=== PATIENT | male | born 1960 | race Asian ===

== ENCOUNTER 2025-05-10 07:26 | Emergency (ER) | payer BC ==
[~2025-05-10] VITALS: Ht 162.6 cm; Wt 69.5 kg
[~2025-05-10 07:26] MED LIST: OMEG1CAP46 PO
--- NOTE | 2025-05-10 07:46 | Physician Documentation ---
History of Present Illness Chief Complaint: See Chief Complaint Stated Complaint: RABIES VACCINE Time Seen by MD: 07:31 Source: patient Mode of Arrival: POV Exam Limitations: no limitations HPI Patient who was seen several days ago in the ER after touching a bat and feeling of poke. Concern for bite. Rabies vaccine started along with immunoglobulin. He is back today for his 2nd vaccine. Denies any problems with the vaccine. Medication Reconciliation Allergies: Coded Allergies: No Known Allergies (Unverified , 05/07/25) Scheduled [place]-3 Fatty Acids/Fish Oil ([place] 3 1,000 mg Softgel), 1 CAP PO DAILY, (Reported) Past Medical History Past Medical History: Lymphoma Past Surgical History: noncontributory Alcohol Use: None Drug Use: none Lives In: Home Review of Systems All Other Systems at this time: Reviewed and Negative Physical Exam Vital Signs: Temperature: 98.6, Source: Oral, Heart Rate: 65, Respiratory Rate: 18, BP: 127/64, Pulse Oximetry: 100, Weight: 69.550 General Appearance: alert EENT: PERRL/EOMI Neck: normal inspection Respiratory: no respiratory distress Chest: no accessory muscle use Neurologic: oriented x4 Psychiatric: normal mood/affect Skin: normal color, warm/dry Progress Results/Orders Results/Orders Completed Orders - MORELIA LOPEZ MD Rabies Vaccine ([facility])/Pf (Rabavert Rabie (05/10/25 07:40) Vital Signs 05/10/25 07:30 Temp 98.6 Pulse 65 Resp 18 B/P (MAP) 127/64 Pulse Ox 100 Departure Disposition: 01 HOME / SELF CARE / HOMELESS Impression: Primary Impression: Rabies, need for prophylactic vaccination against Condition: Stable Referrals: NO PRIMARY CARE PROVIDER (PCP) Comments Return on day 7 which would be May 14 for your next vaccine. Return to the ER prior to that time if any concerns. Education Educated: Patient, Family Educated regarding: diagnosis, treatment, need for follow up Signature Scribe Signature: No scribe used Attestation: No scribe used MORELIA LOPEZ MD May 10, 2025 07:46
[2025-05-10 08:23] VITALS: BP 120/77; PULSE 61; RESP 18; TEMP 98.6; O2SAT 98
== END 2025-05-10 08:22 | disposition home or self-care (01) ==
LOC: ER 07:27
DX: Z23 Encounter for immunization (principal); Z91.013 Allergy to seafood
CPT/HCPCS: 90471; 90675; 99281

== ENCOUNTER 2025-05-14 07:16 | Emergency (ER) | payer BC, MEDICARE ==
[~2025-05-14] VITALS: Ht 162.6 cm; Wt 68.1 kg
[2025-05-14 07:19] VITALS: TEMP 96.4
--- NOTE | 2025-05-14 07:29 | Physician Documentation ---
History of Present Illness General Chief Complaint: See Chief Complaint Stated Complaint: RABIES VACCINE Time Seen by MD: 07:29 OK to notify your PCP?: No Source: patient, family, RN notes reviewed, old records Mode of Arrival: POV Exam Limitations: no limitations History of Present Illness Initial Comments 65 year old male presents for the 3rd vaccination in the rabies series after accidentally touching at bat on 05/07/2025 and pricking his left ring finger. He presented to the ED on the initial day and was started on the rabies vaccination series. He returned on 05/10/2025 for the 2nd dose. He denies any pain of the finger, spreading redness, fever, body aches, or any other concerns. Medication Reconciliation Allergies: Coded Allergies: No Known Allergies (Unverified , 05/14/25) Scheduled [place]-3 Fatty Acids/Fish Oil ([place] 3 1,000 mg Softgel), 1 CAP PO DAILY, (Reported) Past Medical History Past Medical History: Lymphoma Past Surgical History: noncontributory Alcohol Use: None Drug Use: none Lives In: Home Review of Systems All Other Systems at this time: Reviewed and Negative ROS As stated above in the HPI, otherwise all systems are reviewed and negative. Physical Exam Physical Exam Vital Signs: RN Vital Signs have been reviewed: Yes, Temperature: 96.4, Heart Rate: 59, Respiratory Rate: 16, BP: 116/54, Pulse Oximetry: 99, Weight: 68.100 Pulse Oximetry Reflects: adequate oxygenation Physical Exam VITALS: Reviewed and as above. GENERAL: Alert, no apparent distress. HEENT: Normocephalic, atraumatic, PERRL, EOMI, dry mucosa MUSCULOSKELETAL: No deformities, no edema SKIN: Normal appearing skin of the left hand, FROM of all fingers. Warm and dry, no rash NEURO: Oriented x4, No motor or sensory deficit PSYCH: Normal mood and affect, no agitation Progress Progress Note 0800: Pharmacy reports we do not have a rabies vaccination in stock, as it is a consignment medication, but will have one tomorrow. Patient wishes to return tomorrow for the vaccination. Results/Orders Results/Orders Vital Signs 05/14/25 07:19 Temp 96.4 Pulse 59 Resp 16 B/P (MAP) 116/54 Pulse Ox 99 Medical Decision Making Additional info obtained from: old records (Admitted in 2019 for leg infection) Findings 65 year old male presents for the 3rd vaccination in the rabies series after break in the skin to his left 4th finger when accidentally picking up a bat on 05/07/25. He has received the first two vaccinations in the series and has no complaints at this time. He denies any fever, pain, or body aches. Upon examination there is no evidence of erythema, skin break, or issues with the range of motion of the left hand/4th finger. Unfortunately I was notified by pharmacy that we do not have a rabies vaccination in stock, and can not obtain one from an outside facility. Pharmacy reports we will have a vaccination in stock tomorrow morning. Patient wishes to return tomorrow for the 3rd vaccination, and again in one week for the 4th and final vaccination. Vital signs were reviewed and interpreted by myself as within normal limits; pulse oxygenation was reviewed and interpreted by myself as normal. Prior records and hospitalizations were reviewed: Admitted in 2019 for leg infection and seen twice in the last week for rabies vaccinations. Departure Time of Disposition: 07:43 Disposition: 01 HOME / SELF CARE / HOMELESS Impression: Primary Impression: Encounter for repeat administration of rabies vaccination Condition: Stable Discharge Instructions: Rabies Additional Instructions: Return to the ER tomorrow for the 3rd vaccination, and in one week for the final vaccination. Return sooner for other concerns. Education Educated: Patient, Family Educated regarding: diagnosis, treatment, need for follow up Signature Scribe Signature: Scribed for Shahana Estes MD by Kishan Bang . 05/14/25 07:45 SHAHANA ESTES MD May 14, 2025 07:29 KISHAN FULLER May 14, 2025 07:45
[2025-05-14 08:26] VITALS: BP 120/62; PULSE 57; RESP 16; O2SAT 98
== END 2025-05-14 08:28 | disposition home or self-care (01) ==
LOC: ER 07:17
DX: S61.255D Open bite of left ring finger without damage to nail, subsequent encounter (principal); Z23 Encounter for immunization; Z79.899 Other long term (current) drug therapy; W54.0XXD Bitten by dog, subsequent encounter
CPT/HCPCS: 99281

== ENCOUNTER 2025-05-15 09:11 | Emergency (ER) | payer BC, MEDICARE ==
[~2025-05-15] VITALS: Ht 162.6 cm; Wt 68.7 kg
[2025-05-15 09:17] VITALS: BP 117/48; PULSE 87; RESP 18; O2SAT 98
--- NOTE | 2025-05-15 09:23 | Physician Documentation ---
History of Present Illness General Chief Complaint: Medication Request Stated Complaint: RABIES VACCINE Time Seen by MD: 09:20 OK to notify your PCP?: No Source: patient, RN notes reviewed Mode of Arrival: POV Exam Limitations: no limitations History of Present Illness Initial Comments 65 year old male presents for the 3rd vaccination in the rabies series after accidentally touching at bat on 05/07/2025 and pricking his left ring finger. He presented to the ED on the initial day and was started on the rabies vaccination series. He returned on 05/10/2025 for the 2nd dose. Patient also visited the ED yesterday for the 3rd dose, however we did not have a dose of the vaccine, so he was recommended to return today. He denies any pain of the finger, spreading redness, fever, body aches, or any other concerns. Medication Reconciliation Allergies: Coded Allergies: No Known Allergies (Unverified , 05/14/25) Scheduled [place]-3 Fatty Acids/Fish Oil ([place] 3 1,000 mg Softgel), 1 CAP PO DAILY, (Reported) Past Medical History Past Medical History: Lymphoma Past Surgical History: noncontributory Alcohol Use: None Drug Use: none Lives In: Home Review of Systems All Other Systems at this time: Reviewed and Negative ROS As stated above in the HPI, otherwise all systems are reviewed and negative. Physical Exam Physical Exam Vital Signs: RN Vital Signs have been reviewed: Yes, Temperature: 97.6, Source: Temporal, Heart Rate: 87, Respiratory Rate: 18, BP: 117/48, Pulse Oximetry: 98, Weight: 68.700 Pulse Oximetry Reflects: adequate oxygenation Physical Exam VITALS: Reviewed and as above. GENERAL: Alert, no apparent distress. HEENT: Normocephalic, atraumatic, PERRL, EOMI, dry mucosa MUSCULOSKELETAL: No deformities, no edema SKIN: Left hand without signs of erythema or any skin break, full range of motion of all fingers. Warm and dry, no rash NEURO: Oriented x4, No motor or sensory deficit PSYCH: Normal mood and affect, no agitation Progress Results/Orders Results/Orders Vital Signs 05/15/25 09:17 Temp 97.6 Pulse 87 Resp 18 B/P (MAP) 117/48 Pulse Ox 98 Departure Time of Disposition: Disposition: 01 HOME / SELF CARE / HOMELESS Impression: Primary Impression: Encounter for repeat administration of rabies vaccination Condition: Stable Discharge Instructions: General Discharge Instructions Additional Instructions: Return to the ER in 6-7 days for the final vaccination in the rabies series. Return to the ER sooner for other concerns. Education Educated: Patient Educated regarding: diagnosis, treatment, need for follow up Signature Scribe Signature: Scribed for Shahana Estes MD by Kishan Bang . 05/15/25 09:24 SHAHANA ESTES MD May 15, 2025 09:23 KISHAN FULLER May 15, 2025 09:28
[2025-05-15 09:56] VITALS: TEMP 97.6
== END 2025-05-15 10:01 | disposition home or self-care (01) ==
LOC: ER 09:12
DX: S61.255D Open bite of left ring finger without damage to nail, subsequent encounter (principal); Z23 Encounter for immunization; Z79.899 Other long term (current) drug therapy; W54.0XXD Bitten by dog, subsequent encounter
CPT/HCPCS: 90471; 90675; 99281

== ENCOUNTER 2025-05-21 08:10 | Emergency (ER) | payer BC, MEDICARE ==
[~2025-05-21] VITALS: Ht 162.6 cm; Wt 68.2 kg
[2025-05-21 08:13] VITALS: BP 128/62; PULSE 58; RESP 16; TEMP 98; O2SAT 100
--- NOTE | 2025-05-21 08:56 | Physician Documentation ---
HPI ~ General Chief Complaint: Medication Request Stated Complaint: RABIES VACCINE Time Seen by MD: 08:45 History of Present Illness HPI Comments Patient returns to the ED for final rabies vaccine. Without Medications Since: May 21, 2025 Medication Reconciliation Allergies: Coded Allergies: No Known Allergies (Unverified , 05/14/25) Scheduled [place]-3 Fatty Acids/Fish Oil ([place] 3 1,000 mg Softgel), 1 CAP PO DAILY, (Reported) Past Medical History Past Medical History: Lymphoma Past Surgical History: noncontributory Alcohol Use: None Drug Use: none Lives In: Home Review of Systems All Other Systems at this time: Reviewed and Negative ROS As stated above in the HPI, otherwise all systems are reviewed and negative. Physical Exam Physical Exam Vital Signs: Temperature: 98.0, Source: Temporal, Heart Rate: 58, Respiratory Rate: 16, BP: 128/62, Pulse Oximetry: 100, Weight: 68.180 Oxygen Flow Rate: 0 Physical Exam General: Alert, no apparent distress. HEENT: PERRL, EOMI, no injection, moist mucous membranes. Neck: Full range of motion. Respiratory: Lungs clear, no respiratory distress. Chest: No accessory muscle use. Cardiovascular: Regular rate and rhythm, no murmurs. Gastrointestinal: Soft, nontender, nondistended. Bowels sounds present. Extremities: Normal range of motion, no deformity. Neurologic: Oriented x4. Psychiatric: Normal mood and affect. Skin: Normal color, warm and dry. No edema, no ecchymosis. Progress Results/Orders Results/Orders Completed Orders - FELICE LOYOLA NP Rabies Vaccine ([facility])/Pf (Rabavert Rabie (05/21/25 08:50) Medications Received in ER Medications (Trade) Dose Ordered Sig/Arik Route PRN Reason Start Time Stop Time Status Last Admin Dose Admin (Rabavert Rabies Vaccine kit) 2.5 unit ONCE ONCE IMVAC 05/21/25 08:50 05/21/25 08:52 DC 05/21/25 09:49 2.5 UNIT Vital Signs 05/21/25 08:13 Temp 98.0 Pulse 58 Resp 16 B/P (MAP) 128/62 Pulse Ox 100 O2 Flow Rate 0 Medical Decision Making Findings final rabies vaccine addministered. Differential Dx:Considerations: Include: Adverse circumstances, Economic, Psychosocial, Medical services unavail., Medication refill, Medication non- compliance, Other Departure Disposition: HOME / SELF CARE / HOMELESS Impression: Primary Impression: General medical exam Ruled Out: Rabies, need for prophylactic vaccination against Condition: Stable Discharge Instructions: Rabies Referrals: NO PRIMARY CARE PROVIDER (PCP) Signature Scribe Signature: h Attestation: Scribed for Felice Loyola Braze Operator by Felice Parish NP . 05/21/25 15:18 FELICE LOYOLA [employer] May 21, 2025 08:56
== END 2025-05-21 09:55 | disposition home or self-care (01) ==
LOC: ER 08:10
DX: T14.8XXD Other injury of unspecified body region, subsequent encounter (principal); W54.0XXD Bitten by dog, subsequent encounter; Z79.899 Other long term (current) drug therapy; Z23 Encounter for immunization
CPT/HCPCS: 90471; 90675; 99281